=== PATIENT | male | born 1955 | race Caucasian/White ===

== ENCOUNTER 2025-05-24 10:43 | Inpatient (IN) | payer MEDICARE ==
[~2025-05-24] VITALS: Ht 180.3 cm; Wt 108.3 kg
[2025-05-24] MEDS: NICOTINE 14 MG/24 HR TRANSDERMAL TD SCH (09:00)
[2025-05-24 12:15] LABS: SALICYLATE LEVEL < 3.0 MG/DL (<30)
[2025-05-24 12:34] LABS: PLATELET COUNT, AUTOMATED 179 10^3/uL (150-450)
[2025-05-24 12:46] LABS: ETHYL ALCOHOL (ETHANOL) 0.005 % (0.000-0.010)
[2025-05-24 12:48] LABS: ALT/SGPT 36 U/L (7.0-40); AST/SGOT 42 U/L (<34); CALCIUM LEVEL 8.5 MG/DL (8.3-10.6); CARBON DIOXIDE LEVEL 21 MMOL/L (20-31); CHLORIDE LEVEL 105 MMOL/L (98-107); CREATININE FOR GFR 1.34 MG/DL (0.70-1.30); GLOMERULAR FILTRATION RATE 57.3 (>49); POTASSIUM SERUM 3.8 MMOL/L (3.5-5.1); SODIUM LEVEL 142 MMOL/L (136-145)
[2025-05-24] MEDS ORDERED: MED REC CURRENTLY UNOBTAINABLE XX SCH (12:55)
[2025-05-24] MEDS ORDERED: LOSA50TA28 PO (13:18)
[2025-05-24] MEDS ORDERED: METF-877 PO (13:18)
[2025-05-24] MEDS ORDERED: NOVOINJ3 SC (13:18)
[2025-05-24] MEDS ORDERED: BASA100I SC (13:18)
[2025-05-24] MEDS ORDERED: CLOZ200T4 PO (13:18)
[2025-05-24] MEDS ORDERED: LEVO50TA5 PO (13:18)
[2025-05-24] MEDS ORDERED: JARD1TAB PO (13:18)
[2025-05-24] MEDS ORDERED: SEMA2PEN SQ (13:18)
[2025-05-24] MEDS ORDERED: ZOLO100T PO (13:18)
[2025-05-24] MEDS ORDERED: ATOR1TAB19 PO (13:18)
[2025-05-24] MEDS ORDERED: OMEP-173 PO (13:18)
[2025-05-24] MEDS ORDERED: GABA-1172 PO (13:18)
[2025-05-24] MEDS ORDERED: med rec comment (13:19)
[2025-05-24] MEDS ORDERED: HOME MED LIST COMPLETE! XX SCH (13:20)
[2025-05-24] MEDS ORDERED: IBUPROFEN 400 MG TAB PO PRN (13:25)
[2025-05-24] MEDS ORDERED: MOM 30 ML SUSPENSION UDC PO PRN (13:25)
[2025-05-24] MEDS ORDERED: HALOPERIDOL 5 MG TAB PO PRN (13:25)
[2025-05-24] MEDS ORDERED: OLANZapine 5 MG TAB PO PRN (13:25)
[2025-05-24] MEDS: OMEPRAZOLE 20MG CAP PO SCH (13:42)
[2025-05-24] MEDS: ATORVASTATIN 10 MG TAB PO SCH (13:43)
[2025-05-24] MEDS: LOSARTAN 50 MG TABLET PO SCH (13:43)
[2025-05-24 13:55] LABS: AMPHETAMINES LEVEL URINE NEGATIVE (NEGATIVE)
[2025-05-24 13:56] LABS: BARBITURATES URINE NEGATIVE (NEGATIVE); BENZODIAZEPINES URINE NEGATIVE (NEGATIVE); CANNABINOIDS URINE NEGATIVE (NEGATIVE); COCAINE METABOLITE URINE NEGATIVE (NEGATIVE); METHADONE URINE NEGATIVE (NEGATIVE); OPIATES URINE NEGATIVE (NEGATIVE); PHENCYCLIDINE URINE NEGATIVE (NEGATIVE)
[2025-05-24 14:29] LABS: BASO # 0.0 10^3/uL (0.0-0.2); BASO % 0.0 % (0.0-1.0); EOS # 0.0 10^3/uL (0.0-0.5); EOS % 0.0 % (0.0-3.0); LYMPH # 1.3 10^3/uL (1.5-5.0); LYMPH % 16.7 % (24.0-44.0); MONO # 0.6 10^3/uL (0.0-0.8); MONO % 8.2 % (2.0-8.0); NEUTROPHILS # 5.7 10^3/uL (1.5-8.5); NEUTROPHILS % 74.7 % (36.0-66.0); PLATELET COUNT, AUTOMATED 154 10^3/uL (150-450)
[2025-05-24 15:33] VITALS: BP 126/58; TEMP 98.6; O2SAT 94
[2025-05-24 15:46] LABS: ESTIMATED AVERAGE GLUCOSE 194.0 MG/DL (60-110)
[2025-05-24] MEDS ORDERED: GLUCAGON INJ 1 MG VIAL SC PRN (20:05)
[2025-05-24] MEDS ORDERED: GLUCOSE 4 GM CHEW PO PRN (20:05)
[2025-05-24] MEDS ORDERED: DEXTROSE 50% 50 ML SYRINGE IV PRN (20:05)
[2025-05-24] MEDS: GABAPENTIN 300 MG CAP PO SCH (20:53)
[2025-05-24] MEDS: INSULIN LISPRO (NovoLOG) PER UNIT SC SCH (22:07)
[2025-05-25] MEDS: LEVOTHYROXINE 50 MCG TABLET (0.05 MG) PO SCH (06:14)
[2025-05-25 06:48] VITALS: BP 145/84; TEMP 96.3; O2SAT 96
[2025-05-25] MEDS: INSULIN LISPRO (NovoLOG) PER UNIT SC SCH (07:34)
[2025-05-25 12:25] LABS: KETONE, URINE AUTO RFX 1+ mg/dL (NEGATIVE); LEUKOCYTE ESTERASE UR AUTO RFX NEGATIVE (NEGATIVE); NITRITE, URINE AUTO RFX NEGATIVE (NEGATIVE); RBC, URINE AUTO RFX 0 /HPF (0-3); SQUAM EPITHELIAL CELL UR AURFX 0 /HPF (0-6); WBC, URINE AUTO RFX 0 /HPF (0-3)
[2025-05-25] MEDS ORDERED: IPRATROPIUM 0.5 MG/ALBUTEROL 2.5 MG INH SOL UD 3 ML NEB PRN (12:25)
[2025-05-25] MEDS: ACETAMINOPHEN 325 MG TAB PO PRN (14:16)
[2025-05-25 15:00] VITALS: BP 108/59; TEMP 97.6; O2SAT 96
[2025-05-25] MEDS: INSULIN GLARGINE-YFGN 1 UNITS/0.01 ML SC SCH (21:00)
[2025-05-26 06:43] VITALS: BP 145/78; TEMP 96.6; O2SAT 95
[2025-05-26 09:13] VITALS: BP 125/71
[2025-05-26] MEDS: INSULIN GLARGINE-YFGN 1 UNITS/0.01 ML SC SCH (09:16)
[2025-05-26 15:24] VITALS: BP 147/72; TEMP 97.3; O2SAT 97
[2025-05-26] MEDS: traZODone 50 MG TAB PO PRN (20:54)
[2025-05-26] MEDS: LORazepam 1 MG TAB PO PRN (20:55)
[2025-05-27 06:32] VITALS: BP 125/70; TEMP 96.9; O2SAT 100
[2025-05-27 15:11] VITALS: BP 125/56; TEMP 97.9; O2SAT 95
[2025-05-28 06:32] VITALS: BP 141/68; TEMP 97.9; O2SAT 96
[2025-05-28 16:20] VITALS: BP 144/68; TEMP 97.4; O2SAT 95
[2025-05-29 06:25] VITALS: BP 130/86; TEMP 97.9; O2SAT 95
[2025-05-29 15:48] VITALS: BP 124/62; TEMP 97.2; O2SAT 95
[2025-05-29 17:24] LABS: BASO # 0.0 10^3/uL (0.0-0.2); BASO % 0.0 % (0.0-1.0); EOS # 0.0 10^3/uL (0.0-0.5); EOS % 0.0 % (0.0-3.0); LYMPH # 1.6 10^3/uL (1.5-5.0); LYMPH % 19.5 % (24.0-44.0); MONO # 0.7 10^3/uL (0.0-0.8); MONO % 9.3 % (2.0-8.0); NEUTROPHILS # 5.6 10^3/uL (1.5-8.5); NEUTROPHILS % 70.7 % (36.0-66.0); PLATELET COUNT, AUTOMATED 193 10^3/uL (150-450)
[2025-05-30 06:30] VITALS: BP 117/60; TEMP 97.8; O2SAT 100
[2025-05-30 09:00] VITALS: BP 112/66
[2025-05-30 15:00] VITALS: BP 119/62; TEMP 97.9; O2SAT 97
[2025-05-31 06:43] VITALS: BP 110/63; TEMP 98.6; O2SAT 95
[2025-05-31 09:41] VITALS: BP 128/88
[2025-05-31] MEDS: MAALOX 30 ML SUSP *UDC PO PRN (11:58)
[2025-05-31 16:06] VITALS: BP 126/63; TEMP 97.8; O2SAT 97
[2025-06-01 06:55] VITALS: BP 151/72; TEMP 97.4; O2SAT 96
[2025-06-01] MEDS ORDERED: ABIL1TAB11 PO (08:31)
[2025-06-01] MEDS ORDERED: CLOZ25TA6 PO (08:31)
[2025-06-01 08:37] VITALS: BP 143/69
[2025-06-01 08:43] VITALS: BP 143/69
[2025-06-01] MEDS ORDERED: ARIP1TAB PO (11:20)
[2025-06-02 12:08] LABS: CLOZAPINE 1 59 ng/mL (350-600); CLOZAPINE 2 22 ng/mL (Not Estab.); CLOZAPINE 3 81 ng/mL (.)
== END 2025-06-01 13:06 | disposition home or self-care (01) | DRG 885 ==
LOC: EDBD 10:43 → M ED 10:43 → M ED INP 13:25 → M PSY 15:16
PROVIDERS: ADMIT Internal Medicine; ATTEND Psychiatry & Neurology Psychiatry
DX: F25.0 Schizoaffective disorder, bipolar type (principal); E11.40 Type 2 diabetes mellitus with diabetic neuropathy, unspecified; J44.9 Chronic obstructive pulmonary disease, unspecified; K21.9 Gastro-esophageal reflux disease without esophagitis; I10 Essential (primary) hypertension; R05.9 Cough, unspecified; E11.65 Type 2 diabetes mellitus with hyperglycemia; F41.9 Anxiety disorder, unspecified; H91.93 Unspecified hearing loss, bilateral; Z87.891 Personal history of nicotine dependence; Z91.148 Patient's other noncompliance with medication regimen for other reason; Z79.899 Other long term (current) drug therapy; Z79.84 Long term (current) use of oral hypoglycemic drugs